=== PATIENT | male | born 1965 | race Caucasian/White ===

== ENCOUNTER → 2022-08-24 | Outpatient (CLI) | payer BC | LOC: M PLAIMG 06:45 → M RAD 06:45 | PROVIDERS: ATTEND Physician Assistant | DX: M25.512 Pain in left shoulder (principal); M19.012 Primary osteoarthritis, left shoulder; S43.492A Other sprain of left shoulder joint, initial encounter; X58.XXXA Exposure to other specified factors, initial encounter; Y92.9 Unspecified place or not applicable; Y93.9 Activity, unspecified; Y99.9 Unspecified external cause status ==

== ENCOUNTER → 2024-01-20 | Outpatient (CLI) | payer BC | LOC: M RAD 12:32 | PROVIDERS: ATTEND Nurse Practitioner Family | DX: M85.612 Other cyst of bone, left shoulder (principal); E04.1 Nontoxic single thyroid nodule ==

== ENCOUNTER → 2024-07-17 | Outpatient (REF) | payer BC | LOC: M SFHCDERM 17:42 | PROVIDERS: ATTEND Physician Assistant | DX: D48.5 Neoplasm of uncertain behavior of skin (principal) ==